=== PATIENT | male | born 1970 | race Caucasian/White ===

== ENCOUNTER 2016-10-06 15:05 | Emergency (ER) | payer OTHER ==
[~2016-10-06] VITALS: Ht 188 cm; Wt 106.8 kg
[2016-10-06 15:07] VITALS: BP 113/73; PULSE 79; RESP 13; O2SAT 100
[2016-10-06] MEDS ORDERED: Ondansetron 2 mg/mL 2 mL Inj IVPUSH ONE (15:20)
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
[2016-10-06] MEDS: HYDROmorphone 0.5 mg/0.5 mL iSecure Syringe IVPUSH PRN ×4 (15:38→17:56)
[2016-10-06] MEDS ORDERED: CeFAZolin 2 Gm/50 mL D5W Duplex Bag IV ONE (15:45)
[2016-10-06] MEDS ORDERED: TdaP Vaccine 0.5 mL Inj IM ONE (15:45)
[2016-10-06 16:05] LABS: BASOPHILS % (AUTO) 0.2 % (0-3); EOSINOPHILS % (AUTO) 0.1 % (0-5); MONOCYTES % (AUTO) 6.2 % (4-12); Mean Corpuscular Hemoglobin 33.1 pg (27.0-35.0); Mean Corpuscular Volume 94.4 fL (81-100); NEUTROPHILS % (AUTO) 87.1 % (40-74); Platelet Count 188 bil/L (150-400)
--- NOTE | 2016-10-06 16:16 | DRSVH ---
PROCEDURE: X-RAY RIGHT TIBIA/FIBULA, TWO VIEWS ([id number]) INDICATIONS: RIGHT OPEN LOWER LEG INJURY TECHNIQUE: 2 views of the tibia and fibula were acquired. COMPARISON: None. FINDINGS: Bones: There is a comminuted fracture of the proximal to mid tibial shaft with 3 cm lateral displacem ent and mild angulation of the distal fracture fragment. In addition, complex fracture of the medial and distal tibial shaft is present. Soft tissues: No suspicious soft tissue calcifications or masses. Infrapatellar soft tissue swellin g and subcutaneous gas. There is a small knee joint effusion. IMPRESSION: 1. Comminuted tibial shaft fracture. 2. Complex fibular shaft fractures. 3. Infrapatellar soft tissue swelling and small knee joint effusion. Dictated by: Kyree Garcia M.D. on 10/06/2016 at 15:07 Approved by: Kyree Garcia M.D. on 10/06/2016 at 15:14
[2016-10-06 17:13] VITALS: BP 126/61; PULSE 83; RESP 16; O2SAT 99
[2016-10-06] MEDS: HYDROmorphone 1 mg/mL Inj IVPUSH PRN ×4 (18:26→19:17)
[2016-10-06 19:02] VITALS: BP 144/87; PULSE 94; RESP 16; O2SAT 100
[2016-10-06 19:03] VITALS: BP 144/87; PULSE 94; RESP 16; O2SAT 100
[2016-10-06 19:04] LABS: APPEARANCE,URINE CLEAR (CLEAR,HAZY); COLOR,URINE YELLOW (YELLOW); OCCULT BLOOD,URINE NEGATIVE (NEGATIVE); PH,URINE 5.5 (5.0-8.0); UROBILINOGEN,URINE NORMAL (NORMAL)
== END 2016-10-06 19:40 ==
LOC: EDBD 15:05 → SED 15:05
DX: S82.451B Displaced comminuted fracture of shaft of right fibula, initial encounter for open fracture type I or II (principal); S82.251B Displaced comminuted fracture of shaft of right tibia, initial encounter for open fracture type I or II; V23.0XXA Motorcycle driver injured in collision with car, pick-up truck or van in nontraffic accident, initial encounter; Y92.410 Unspecified street and highway as the place of occurrence of the external cause; Y93.89 Activity, other specified; Y99.8 Other external cause status; I10 Essential (primary) hypertension; Z88.0 Allergy status to penicillin; Z23 Encounter for immunization
CPT/HCPCS: 29515; 36415; 73590; 80053; 81000; 85025; 90471; 90715; 96365; 96375; 96376; 99285; J0690; J1170; J2060; J2405